=== PATIENT | male | born 1965 | race Caucasian/White ===

== ENCOUNTER 2016-09-04 19:00 | Emergency (ER) | payer MEDICAID ==
[~2016-09-04] VITALS: Ht 177.8 cm; Wt 127.3 kg
[~2016-09-04 19:00] MED LIST: AMLO10TA2 PO; BENA40TA2 PO; DULO60CA7 PO; GLIP10TA13 PO; HUMALOG S S SQ; INSU300I SQ; METF10002 PO; METF500T4 PO; MORP15TA PO; PRAV20TA2 PO
[2016-09-04] MEDS ORDERED: SODIUM CHLORIDE 0.9% 1,000 ML IV ONE (19:15)
[2016-09-04] MEDS ORDERED: SODIUM CHLORIDE FLUSH 10ML SYR IVF ONE (19:30)
[2016-09-04 19:51] LABS: HEMOGLOBIN 16.5 g/dL (13.7-18.0)
[2016-09-04] MEDS ORDERED: HYDR12.58 PO (19:54)
[2016-09-04 20:03] LABS: BLOOD UREA NITROGEN 18 mg/dL (7-18)
[2016-09-04 20:06] LABS: ASPARTATE AMINO TRANSFERASE 45 U/L (15-37)
[2016-09-04] MEDS ORDERED: ONDANSETRON 2MG/ML, 2ML ONE (20:11)
[2016-09-04] MEDS ORDERED: HYDROmorphone 1 MG/ML, 1ML ONE ×2 (20:11→21:31)
[2016-09-04] MEDS ORDERED: ONDANSETRON 2MG/ML, 2ML IVPush ONE (20:30)
[2016-09-04] MEDS ORDERED: HYDROmorphone 1 MG/ML, 1ML IV ONE (20:30)
[2016-09-04 21:01] LABS: IS PT STATUS REG ER OR PRE ER? YES
[2016-09-04] MEDS ORDERED: HYDROmorphone 1 MG/ML, 1ML IM ONE (22:00)
[2016-09-04] MEDS ORDERED: DIPHENHYDRAMINE 25 MG CAPSULE ONE (22:19)
[2016-09-04] MEDS ORDERED: DIPHENHYDRAMINE 25 MG CAPSULE PO ONE (22:30)
[2016-09-04 22:34] VITALS: BP 125/89
== END 2016-09-04 22:36 | disposition home or self-care (01) ==
LOC: ED 19:46
DX: M79.662 Pain in left lower leg (principal); R09.1 Pleurisy; E11.40 Type 2 diabetes mellitus with diabetic neuropathy, unspecified; E11.65 Type 2 diabetes mellitus with hyperglycemia; G89.29 Other chronic pain; I10 Essential (primary) hypertension
CPT/HCPCS: 36415; 70450; 71010; 80053; 83690; 84484; 85025; 93005; 93971; 96361; 96372; 96374; 96375; 99285; J1170; J2405; J7030; Q0163

== ENCOUNTER 2016-11-11 18:55 | Emergency (ER) | payer SELFPAY ==
[~2016-11-11] VITALS: Ht 175.3 cm; Wt 122.0 kg
[~2016-11-11 18:55] MED LIST changes: +HYDR12.58 PO
[2016-11-11] MEDS ORDERED: KETOROLAC 30 MG/1 ML ONE (19:37)
[2016-11-11 19:58] LABS: ASPARTATE AMINO TRANSFERASE 28 U/L (15-37); BLOOD UREA NITROGEN 13 mg/dL (7-18)
[2016-11-11] MEDS ORDERED: KETOROLAC 30 MG/1 ML IVPush ONE (20:00)
[2016-11-11] MEDS ORDERED: SODIUM CHLORIDE FLUSH 10ML SYR IVF ONE (20:00)
[2016-11-11 20:51] VITALS: BP 138/78
== END 2016-11-11 20:53 | disposition home or self-care (01) ==
LOC: ED 20:42
DX: N20.0 Calculus of kidney (principal); R31.9 Hematuria, unspecified; I10 Essential (primary) hypertension; E11.9 Type 2 diabetes mellitus without complications
CPT/HCPCS: 36415; 74000; 76770; 80053; 81001; 83690; 85025; 87086; 96374; 99285; J1885

== ENCOUNTER 2017-01-10 07:27 | Emergency (ER) | payer BC ==
[~2017-01-10] VITALS: Ht 177.8 cm; Wt 128.7 kg
[2017-01-10 07:30] VITALS: BP 162/102
[2017-01-10] MEDS ORDERED: SODIUM CHLORIDE 0.9% 1,000 ML IV ONE (07:58)
[2017-01-10] MEDS ORDERED: SODIUM CHLORIDE FLUSH 10ML SYR IVF ONE (08:00)
[2017-01-10] MEDS ORDERED: ONDANSETRON 2MG/ML, 2ML IVPush ONE (08:00)
[2017-01-10] MEDS ORDERED: ONDANSETRON 2MG/ML, 2ML ONE (08:10)
[2017-01-10] MEDS ORDERED: MORPHINE SULFATE 4 MG/ML, 1ML ONE ×2 (08:10→09:21)
[2017-01-10] MEDS: MORPHINE SULFATE 4 MG/ML, 1ML IVPush PRN ×2 (08:15→09:27)
[2017-01-10 08:26] LABS: BLOOD UREA NITROGEN 12 mg/dL (7-18)
[2017-01-10] MEDS ORDERED: INSULIN REGULAR 100 UNITS/ML, 3ML VIAL SQ-INSULIN ONE (09:00)
[2017-01-10] MEDS ORDERED: SODIUM CHLORIDE 0.9% 1,000ML IVBOLUS ONE (09:00)
[2017-01-10] MEDS ORDERED: KETOROLAC 30 MG/1 ML ONE (09:29)
[2017-01-10] MEDS ORDERED: KETOROLAC 30 MG/1 ML IVPush ONE (09:30)
== END 2017-01-10 10:06 | disposition home or self-care (01) ==
LOC: ED 08:33
DX: G51.0 Bell's palsy (principal); E11.65 Type 2 diabetes mellitus with hyperglycemia; I10 Essential (primary) hypertension; M54.9 Dorsalgia, unspecified; G89.29 Other chronic pain
CPT/HCPCS: 36415; 70450; 80048; 82040; 85025; 85610; 85651; 85730; 93005; 96361; 96374; 96375; 96376; 99285; J1885; J2405; J7030

== ENCOUNTER 2017-03-07 07:46 | Emergency (ER) | payer BC ==
[~2017-03-07] VITALS: Ht 177.8 cm; Wt 130.3 kg
[2017-03-07] MEDS ORDERED: DULO60CA7 PO (08:00)
[2017-03-07] MEDS ORDERED: GLIP10TA13 PO (08:00)
[2017-03-07] MEDS ORDERED: GABA600T2 PO (08:00)
[2017-03-07] MEDS ORDERED: INSU100V8 SQ (08:00)
[2017-03-07] MEDS ORDERED: CARI350T PO (08:00)
[2017-03-07] MEDS ORDERED: SODIUM CHLORIDE 0.9% 1,000 ML IV ONE (08:12)
[2017-03-07] MEDS ORDERED: MORPHINE SULFATE 4 MG/ML, 1ML ONE ×2 (08:29→09:25)
[2017-03-07] MEDS ORDERED: SODIUM CHLORIDE 0.9% 1,000ML IVBOLUS ONE (08:30)
[2017-03-07] MEDS ORDERED: ONDANSETRON 2MG/ML, 2ML IVPush ONE (08:30)
[2017-03-07] MEDS ORDERED: ONDANSETRON 2MG/ML, 2ML ONE (08:30)
[2017-03-07] MEDS: MORPHINE SULFATE 4 MG/ML, 1ML IVPush PRN ×2 (08:32→09:26)
[2017-03-07 08:38] LABS: HEMATOCRIT 46.6 % (39.2-51.8); HEMOGLOBIN 15.6 g/dL (13.7-18.0); WHITE BLOOD COUNT 11.2 x10^3/uL (3.4-10)
[2017-03-07 08:49] LABS: BLOOD UREA NITROGEN 12 mg/dL (7-18)
[2017-03-07 08:52] LABS: ASPARTATE AMINO TRANSFERASE 19 U/L (15-37)
[2017-03-07 10:30] VITALS: BP 146/96
== END 2017-03-07 10:38 | disposition home or self-care (01) ==
LOC: ED 08:05
DX: M79.1 Myalgia (principal); E11.65 Type 2 diabetes mellitus with hyperglycemia; I10 Essential (primary) hypertension; Z88.0 Allergy status to penicillin; Z88.6 Allergy status to analgesic agent
CPT/HCPCS: 36415; 71020; 80053; 81003; 83690; 85025; 96361; 96374; 96375; 96376; 99285; J2405; J7030

== ENCOUNTER 2017-04-27 08:10 | Emergency (ER) | payer BC ==
[~2017-04-27] VITALS: Ht 180.3 cm; Wt 129.7 kg
[~2017-04-27 08:10] MED LIST changes: +CARI350T PO; +GABA600T2 PO; +INSU100V8 SQ
[2017-04-27] MEDS ORDERED: CEFTRIAXONE 1,000 MG ONE ×2 (08:46→09:02)
[2017-04-27] MEDS ORDERED: DIPH,PERTUSS(ACELL),TET VAC/PF 0.5 ML IM-VACC ONE ×2 (08:47→09:00)
[2017-04-27] MEDS ORDERED: HYDROcodone/APAP 10/325 MG TABLET ONE (08:47)
[2017-04-27] MEDS ORDERED: HYDROcodone/APAP 10/325 MG TABLET PO ONE (09:00)
[2017-04-27] MEDS ORDERED: CEFTRIAXONE 1,000 MG IM ONE (09:00)
[2017-04-27] MEDS ORDERED: LIDOCAINE 1%, 20ML ONE (09:02)
[2017-04-27 09:16] LABS: HEMATOCRIT 45.2 % (39.2-51.8); HEMOGLOBIN 15.2 g/dL (13.7-18.0); WHITE BLOOD COUNT 9.1 x10^3/uL (3.4-10)
[2017-04-27 09:28] LABS: BLOOD UREA NITROGEN 10 mg/dL (7-18)
[2017-04-27 10:17] VITALS: BP 141/96
== END 2017-04-27 10:20 | disposition home or self-care (01) ==
LOC: ED 08:24
DX: S61.431A Puncture wound without foreign body of right hand, initial encounter (principal); I10 Essential (primary) hypertension; E11.65 Type 2 diabetes mellitus with hyperglycemia; G89.4 Chronic pain syndrome
CPT/HCPCS: 29125; 36415; 73130; 80048; 82040; 85025; 90471; 90715; 96372; 99285; J0696

== ENCOUNTER 2017-07-29 13:04 | Emergency (ER) | payer BC, MEDICAID, OTHER ==
[~2017-07-29] VITALS: Ht 177.8 cm; Wt 127.7 kg
[2017-07-29 13:43] LABS: BASOPHILS # (AUTO) 0.14 x10^3/uL (0-0.1); BASOPHILS % (AUTO) 1 % (0-1); EOSINOPHILS # (AUTO) 0.16 x10^3/uL (0-0.4); EOSINOPHILS % (AUTO) 2 % (1-7); LYMPHOCYTES # (AUTO) 3.21 x10^3/uL (1-3.4); LYMPHOCYTES % (AUTO) 32 % (22-44); MD NO; MEAN CORPUSCULAR HEMOGLOBIN 29.5 pg (27.5-34.5); MEAN CORPUSCULAR HGB CONC 33.6 g/dL (33.2-36.2); MEAN CORPUSCULAR VOLUME 87.8 fL (81-97); MEAN PLATELET VOLUME 9.9 fL (7.4-10.4); MONOCYTES # (AUTO) 0.62 x10^3/uL (0.2-0.8); MONOCYTES % (AUTO) 6 % (2-9); NEUTROPHILS # (AUTO) 6.07 x10^3/uL (1.8-6.8); NEUTROPHILS % (AUTO) 60 % (42-75); PLATELET COUNT 258 x10^3/uL (130-400); RED BLOOD COUNT 5.62 x10^6/uL (4.38-5.82); RED CELL DISTRIBUTION WIDTH 13.6 % (9.4-14.8)
[2017-07-29 13:47] LABS: ALANINE AMINOTRANSFERASE 45 U/L (12-78); ALBUMIN 3.8 g/dL (3.4-5.0); ANION GAP 13 mmol/L (5-15); CALCIUM 9.5 mg/dL (8.5-10.1); CHLORIDE 102 mmol/L (98-107)
[2017-07-29 13:49] LABS: ALKALINE PHOSPHATASE 106 U/L (45-117); BILIRUBIN,TOTAL 0.8 mg/dL (0.2-1.0); TOTAL PROTEIN 7.9 g/dL (6.4-8.2)
[2017-07-29] MEDS ORDERED: ONDANSETRON 2MG/ML, 2ML ONE (16:44)
[2017-07-29] MEDS ORDERED: morphine SULFATE 10 MG/ML, 1ML ONE (16:44)
[2017-07-29] MEDS ORDERED: ONDANSETRON 2MG/ML, 2ML IVPush ONE (17:00)
[2017-07-29] MEDS ORDERED: morphine SULFATE 10 MG/ML, 1ML IVPush ONE (17:00)
[2017-07-29 17:14] LABS: MICROSCOPIC NOT IND
[2017-07-29] MEDS ORDERED: OMNIPAQUE 350 MG/ML, 100ML BOTTLE ONE (17:17)
[2017-07-29 17:18] LABS: CULTURE INDICATED? NO
[2017-07-29 17:34] VITALS: BP 144/91
== END 2017-07-29 18:15 | disposition home or self-care (01) ==
LOC: ED 17:09
DX: R10.84 Generalized abdominal pain (principal); F11.23 Opioid dependence with withdrawal; E11.65 Type 2 diabetes mellitus with hyperglycemia; I10 Essential (primary) hypertension; G89.4 Chronic pain syndrome; Z87.891 Personal history of nicotine dependence
CPT/HCPCS: 36415; 74022; 74177; 80053; 81003; 83690; 85025; 96374; 96375; 99285; J2270; J2405; Q9967

== ENCOUNTER 2018-12-03 23:36 | Emergency (ER) | payer MEDICARE, OTHER ==
[~2018-12-03] VITALS: Ht 177.8 cm; Wt 135.0 kg
[~2018-12-03 23:36] MED LIST changes: -AMLO10TA2 PO; +AMLO10TA8 PO; -BENA40TA2 PO; +BENA40TA3 PO; -GABA600T2 PO; +GABA600T7 PO; -HYDR12.58 PO; +HYDROCHLOROTH12.5 MG PO; +METF500T17 PO; -METF500T4 PO
[2018-12-04] MEDS ORDERED: ONDANSETRON 2MG/ML, 2ML IVPush ONE
[2018-12-04] MEDS ORDERED: ONDANSETRON 2MG/ML, 2ML ONE (00:10)
[2018-12-04] MEDS ORDERED: MORPHINE SULFATE 4 MG/ML, 1ML ONE ×2 (00:10→01:23)
[2018-12-04] MEDS: MORPHINE SULFATE 4 MG/ML, 1ML IVPush PRN ×2 (00:13→01:25)
--- NOTE | 2018-12-04 00:17 | NUR ---
PT HERE FOR LLQ AND FLANK PAIN. PIV PLACED AND BLOOD SENT TO LAB. PT MEDICATED FOR PAIN. PT TO CT.
[2018-12-04 00:21] LABS: BASOPHILS # (AUTO) 0.16 x10^3/uL (0-0.1); BASOPHILS % (AUTO) 1 % (0-1); EOSINOPHILS # (AUTO) 0.28 x10^3/uL (0-0.4); EOSINOPHILS % (AUTO) 2 % (1-7); LYMPHOCYTES # (AUTO) 4.54 x10^3/uL (1-3.4); LYMPHOCYTES % (AUTO) 35 % (22-44); MD NO; MEAN CORPUSCULAR HEMOGLOBIN 29.9 pg (27.5-34.5); MEAN CORPUSCULAR HGB CONC 32.8 g/dL (33.2-36.2); MEAN CORPUSCULAR VOLUME 91.3 fL (81-97); MEAN PLATELET VOLUME 10.1 fL (7.4-10.4); MONOCYTES # (AUTO) 0.62 x10^3/uL (0.2-0.8); MONOCYTES % (AUTO) 5 % (2-9); NEUTROPHILS # (AUTO) 7.51 x10^3/uL (1.8-6.8); NEUTROPHILS % (AUTO) 57 % (42-75); PLATELET COUNT 219 x10^3/uL (130-400); RED BLOOD COUNT 5.16 x10^6/uL (4.38-5.82); RED CELL DISTRIBUTION WIDTH 13.8 % (9.4-14.8)
[2018-12-04 00:31] LABS: ALANINE AMINOTRANSFERASE 46 U/L (12-78); ALBUMIN 3.4 g/dL (3.4-5.0); ANION GAP 9 mmol/L (5-15); CALCIUM 8.6 mg/dL (8.5-10.1); CHLORIDE 103 mmol/L (98-107); CREATININE 1.24 mg/dL (0.7-1.3)
[2018-12-04 00:33] LABS: ALKALINE PHOSPHATASE 83 U/L (45-117); BILIRUBIN,TOTAL 0.4 mg/dL (0.2-1.0); TOTAL PROTEIN 7.1 g/dL (6.4-8.2)
--- NOTE | 2018-12-04 01:28 | NUR ---
PT MEDICATED FOR COMPLAINT OF CONTINUED PAIN. POC DISCUSSED. PT AWARE UA IS NEEDED HOWEVER PT STATES UNABLE TO PROVIDE SAMPLE AT THIS TIME. URINAL AT BEDSIDE. PT AND SPOUSE DENY FURTHER NEEDS AT THIS TIME. CALL LIGHT ON LAP.
--- NOTE | 2018-12-04 02:16 | NUR ---
UA SENT TO LAB. PT RESTING WITH NONEEDS AT THIS TIME. CALL LIGHT IN REACH
[2018-12-04 02:20] LABS: MICROSCOPIC NOT IND
[2018-12-04 02:24] LABS: CULTURE INDICATED? NO
[2018-12-04 02:35] VITALS: BP 137/55
== END 2018-12-04 03:02 | disposition home or self-care (01) ==
LOC: ED 12-04 00:23
DX: N20.1 Calculus of ureter (principal); I10 Essential (primary) hypertension; E11.40 Type 2 diabetes mellitus with diabetic neuropathy, unspecified
CPT/HCPCS: 36415; 74176; 80053; 81003; 83690; 85025; 96374; 96375; 96376; 99284; J2270; J2405